=== PATIENT | male | born 1980 | race Caucasian/White ===

== ENCOUNTER 2017-04-23 17:55 | Emergency (ER) | payer BC, OTHER ==
--- NOTE | 2017-04-23 18:34 | EDPHY ---
H & P Time Seen by Provider: 04/23/17 18:11 HPI/ROS: CHIEF COMPLAINT: Lightheaded, near syncope HISTORY OF PRESENT ILLNESS: This 36-year-old man presents with symptoms which started 2 days ago. Earlier this month the whole family including his and son had a stomach flu. He had some abdominal pain afterwards and saw his primary care doctor Aicha at [facility] in [place]. He had a CT scan abdomen and pelvis which was negative by his report, and had initially a little bit of hematuria and proteinuria which on repeat urinalysis had improved. Two days ago he went for a bike ride and started feeling that he was confused and that there was "something wrong" and rode home. The symptoms resolved but then last night he had the same symptoms. He woke up from sleep with his heart racing, feeling weak and lightheaded while lying in bed according to his started talking about "how my intestines are not absorbing any nutrition" but they talked a bit and his symptoms went away. Today he was feeling lightheaded at noon. He felt like he might pass out. Not associated with chest pain or shortness of breath or headache. He is a software development leader and he was looking at the screen and felt confused that he could understand the individual letters but not words. This lasted for 2-3 hours. Of note he had similar symptoms of feeling intermittently confused about 5 years ago in [place] and had EEG and EKG and MRI all were negative. REVIEW OF SYSTEMS: Eye: no diplopia ENT: no sore throat or hearing symptoms Cardiac: No chest pain Pulmonary: no cough or SOB Abdomen: no vomiting, diarrhea, abdominal pain Musculoskeletal: Chronic low back pain unchanged, no recent fall injury or trauma. Skin: no rash Neuro: no headache, no vertigo, no neck pain Constitutional: no fever except for this stomach flu 2 weeks ago : no urinary symptoms A comprehensive 10 point review of systems is otherwise negative aside from elements mentioned in the history of present illness. PAST MEDICAL HISTORY: Exercise-induced asthma, chronic low back pain. Known RBBB. Migraine headaches starting as teenager, minimal since 1999. Social history: , alcohol on Sunday, no drugs General Appearance: Alert and conversant, cooperative. Eyes: No scleral icterus. Extraocular motion intact. ENT, Mouth: Normal mucous membranes. No tongue laceration or abrasion Respiratory: Normal respiratory effort, breath sounds equal, lungs are clear to auscultation. Cardiovascular: Regular rate and rhythm. Gastrointestinal: Abdomen is soft and non tender. Neurological: Alert and oriented x3. Normally conversant. Face symmetric, normal movement and sensation in all extremities. Normal [id number] bilaterally, normal [id number] bilaterally, no pronator drift. Visual harvey intact to confrontation and extraocular motion is intact. No ataxia. Skin: Warm and dry, no rashes. Musculoskeletal: No peripheral edema and no joint swelling. Neck supple. Psychiatric: Not agitated. Emergency Department course/MDM: CBC, chemistry, EKG. Neurology consult by phone; Dr. Blank at 1835. 2006: Results discussed at this time. Patient relates that he had migraines when he was a teenager but that these evolved to mostly just be aura without headache. In discussion with Dr. Blank this is definitely part of the differential diagnoses, an atypical migraine. Dr. Blank's recommendation is to discharge without further testing or imaging tonight, and he will see him in the office tomorrow. Patient and are in agreement with this plan and state they are comfortable with being discharged; symptoms not present at discharge. Smoking Status: Never smoked Constitutional: Initial Vital Signs Temperature (C) 37 C 04/23/17 17:56 Heart Rate 94 04/23/17 17:56 Respiratory Rate 18 04/23/17 17:56 Blood Pressure 148/91 H 04/23/17 17:56 O2 Sat (%) 97 04/23/17 17:56 O2 Delivery Mode Room Air Allergies/Adverse Reactions: environmental Allergy (Uncoded 04/23/17 18:01) Home Medications: Medication Instructions Recorded Albuterol Sulfate [Proventil Hfa] 6.7 gm IH 04/23/17 Fexofenadine HCl [Kate Allergy] 60 mg PO 04/23/17 Medical Decision Making - Diagnostics EKG Interpretation: 12-lead EKG interpreted by me; official reading is in trace master. My interpretation is sinus rhythm with incomplete right bundle branch block and left anterior fascicular block. The patient says he has a known history of right bundle branch block. Differential Diagnosis: Differential diagnosis considered for near syncope including but not limited to metabolic abnormality, vasovagal syncope, arrhythmia, dehydration, and blood loss. - Data Points Laboratory Results: Laboratory Results 04/23/17 18:44 04/23/17 18:44 04/23/17 04/23/17 18:44 18:44 WBC 8.96 10^3/uL 10^3/uL (3.80-9.50) RBC 4.56 10^6/uL 10^6/uL (4.40-6.38) Hgb 14.1 g/dL g/dL (13.7-17.5) Hct 41.2 % % (40.0-51.0) MCV 90.4 fL fL (81.5-99.8) MCH 30.9 pg pg (27.9-34.1) MCHC 34.2 g/dL g/dL (32.4-36.7) RDW 12.2 % % (11.5-15.2) Plt Count 301 10^3/uL 10^3/uL (150-400) MPV 9.6 fL fL (8.7-11.7) Neut % (Auto) 80.7 % H % (39.3-74.2) Lymph % (Auto) 12.3 % L % (15.0-45.0) [place] % (Auto) 6.1 % % (4.5-13.0) Eos % (Auto) 0.3 % L % (0.6-7.6) Baso % (Auto) 0.3 % % (0.3-1.7) Nucleat RBC Rel Count 0.0 % % (0.0-0.2) Absolute Neuts (auto) 7.22 10^3/uL H 10^3/uL (1.70-6.50) Absolute Lymphs (auto) 1.10 10^3/uL 10^3/uL (1.00-3.00) Absolute Monos (auto) 0.55 10^3/uL 10^3/uL (0.30-0.80) Absolute Eos (auto) 0.03 10^3/uL 10^3/uL (0.03-0.40) Absolute Basos (auto) 0.03 10^3/uL 10^3/uL (0.02-0.10) Absolute Nucleated RBC 0.00 10^3/uL 10^3/uL (0-0.01) Immature Gran % 0.3 % % (0.0-1.1) Immature Gran # 0.03 10^3/uL 10^3/uL (0.00-0.10) Sodium 139 mEq/L mEq/L (134-144) Potassium 4.1 mEq/L mEq/L (3.5-5.2) Chloride 102 mEq/L mEq/L (97-110) Carbon Dioxide 23 mEq/l mEq/l (22-31) Anion Gap 14 mEq/L mEq/L (8-16) BUN 13 mg/dL mg/dL (7-23) Creatinine 1.1 mg/dL mg/dL (0.7-1.3) Estimated GFR > 60 Glucose 129 mg/dL H mg/dL (70-100) Calcium 9.8 mg/dL mg/dL (8.5-10.4) Departure - Departure Disposition: Home, Routine, Self-Care Clinical Impression: Near syncope Condition: Good Instructions: Near Syncope (ED) Referrals: SEGUN THOMAS [Other] - As per Instructions Jean-Paul Blank DO [Medical Doctor] - 04/24/17 1:15 pm (Call associated neurologist at 8:[address] Blank spoke with the emergency physician and he asked that you be scheduled for a follow-up appointment with a neurologist at 1:15 p.m. on tomorrow the .)
--- NOTE | 2017-04-23 18:35 | CPEKG ---
Heart Rate: 99 RR Interval: 606 P-R Interval: 140 QRSD Interval: 112 QT Interval: 344 QTC Interval: 442 P [place]: 52 QRS [place]: -64 T Wave [place]: 26 EKG Severity - ABNORMAL ECG - EKG Impression: SINUS RHYTHM EKG Impression: INCOMPLETE RBBB AND LAFB Electronically Signed By: Jah Parkinson 23-Apr-2017 18:44:00
[2017-04-23 19:00] LABS: % IMMATURE GRANULYOCYTES 0.3 % (0.0-1.1); ABSOLUTE IMMATURE GRANULOCYTES 0.03 10^3/uL (0.00-0.10); ADD DIFF? NO; ADD MORPH? NO; ADD SCAN? NO; ATYPICAL LYMPHOCYTE FLAG 40 (0-99); FRAGMENT RBC FLAG 0 (0-99); HEMATOCRIT 41.2 % (40.0-51.0); HEMOGLOBIN 14.1 g/dL (13.7-17.5); LEFT SHIFT FLG 10 (0-99); LIPEMIA HEMOLYSIS FLAG 90 (0-99); MEAN CELL HEMOGLOBIN 30.9 pg (27.9-34.1); MEAN CELL HEMOGLOBIN CONCENTR. 34.2 g/dL (32.4-36.7); MEAN CELL VOLUME 90.4 fL (81.5-99.8); MEAN PLATELET VOLUME 9.6 fL (8.7-11.7); PLATELET CLUMPS FLAG 0 (0-99); PLATELET COUNT 301 10^3/uL (150-400); RED BLOOD CELL COUNT 4.56 10^6/uL (4.40-6.38); RED CELL DISTRIBUTION WIDTH 12.2 % (11.5-15.2)
[2017-04-23 19:16] LABS: ANION GAP 14 mEq/L (8-16); CALCIUM 9.8 mg/dL (8.5-10.4); CARBON DIOXIDE 23 mEq/l (22-31); CHLORIDE 102 mEq/L (97-110); CREATININE 1.1 mg/dL (0.7-1.3); GLOMERULAR FILTRATION RATE > 60; GLUCOSE 129 mg/dL (70-100); POTASSIUM 4.1 mEq/L (3.5-5.2); SODIUM 139 mEq/L (134-144)
[2017-04-23 20:19] VITALS: BP 114/74; PULSE 80; RESP 14; TEMP 98.4; O2SAT 94
== END 2017-04-23 20:18 | disposition home or self-care (01) ==
DX: R55 Syncope and collapse (principal)